=== PATIENT | male | born 1935 | race Caucasian/White ===

== ENCOUNTER 2017-09-07 17:46 | Emergency (ER) | payer MEDICARE, OTHER ==
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
[2017-09-07] MEDS ORDERED: ONDANSETRON HCL IV 4 MG/2 ML VIAL IVP ONE ×2 (18:19→19:17)
[2017-09-07 18:34] LABS: HEMATOCRIT 44.4 % (42.0-52.0); MEAN CELL VOLUME 84.4 fl (81-97); MEAN CORPUSCULAR HEMOGLOBIN 28.5 pg (27-33); MEAN CORPUSCULAR HGB CONC 33.8 g/dl (32-36); MEAN PLATELET VOLUME 10.2 fl (7.4-10.4); RED BLOOD COUNT 5.26 M/uL (4.40-5.70); WHITE BLOOD COUNT W/O DIFF 6.8 K/uL (4.2-12.2)
[2017-09-07 18:42] LABS: INFLUENZA A NEGATIVE (NEGATIVE)
[2017-09-07 18:42] LABS: BLOOD UREA NITROGEN 17 mg/dL (8-23); CREATININE 0.5 mg/dL (0.7-1.2); EST GLOMERULAR FILTRATION RATE > 60 mL/min; TOTAL PROTEIN 4.8 g/dL (6.6-8.7)
[2017-09-07 18:43] LABS: INFLUENZA B NEGATIVE (NEGATIVE)
[2017-09-07 18:44] LABS: GLUCOSE,RANDOM 82 mg/dL (74-109)
[2017-09-07 18:45] LABS: PLATELET COUNT 90 K/uL (130-400)
[2017-09-07] MEDS ORDERED: HYDROCORTISONE 100MG/VIAL IVP ONE (18:46)
[2017-09-07 18:47] LABS: ALB/GLOB RATIO 1.4 (1.1-1.8); ALBUMIN 2.8 g/dL (4.0-5.0); ALKALINE PHOSPHATASE 120 U/L (40-129); ALT/SGPT 248 U/L (<41); AST/SGOT 327 U/L (10.0-50.0); LIPASE 35 U/L (13-60)
[2017-09-07] MEDS ORDERED: SOD CHLOR 0.9% WITH KCL 40MEQ 40 MEQ/1,000 ML IV.SOLN IV ONE (19:09)
[2017-09-07] MEDS ORDERED: CALCIUM GLUCONATE 100 MG in 0.9 % SODIUM CHLORIDE 100ML 100 ML IV ONE (19:09)
[2017-09-07 20:17] LABS: URINE APPEARANCE CLEAR; URINE BILIRUBIN NEGATIVE (NEGATIVE); URINE BLOOD NEGATIVE (NEGATIVE); URINE COLOR YELLOW; URINE GLUCOSE (UA) NEGATIVE (NEGATIVE); URINE KETONE NEGATIVE (NEGATIVE); URINE LEUKOCYTE ESTERASE NEGATIVE (NEGATIVE); URINE NITRITE NEGATIVE (NEGATIVE); URINE PROTEIN TRACE (NEGATIVE); URINE UROBILINOGEN 0.2 E.U./dL (0.20 - 1.00)
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
[2017-09-07] MEDS ORDERED: PIPERACILLIN SODIUM/TAZOBACTAM 4.5 GM in 0.9 % SODIUM CHLORIDE 100ML 100 ML IVPB ONE (20:40)
--- NOTE | 2017-09-09 09:02 | CT ANGIOGRAM REPORT ---
EXAM: CTA OF THE CHEST WITH CONTRAST WITH POST PROCESSING HISTORY: SHORTNESS OF BREATH, POSSIBLE PE. TECHNIQUE: CTA of the chest was performed following the intravenous administration of 95 ml of Omnipaque 350 as the IV contrast. Post processing on an independent workstation was performed with multiple 3D MIP series obtained. A preliminary report was provided by [facility]. Comparison: No prior chest CT. Comparison is made with the two view chest x- ray dated 10/21/15. FINDINGS: No definite PE identified. There is some mild artifact in some of the peripheral lower lobe pulmonary arterial branches bilaterally probably related to some mild motion artifact. No thoracic aortic aneurysm or dissection is seen. Prominent coronary artery calcification is present. Some mediastinal lipomatosus is noted. No definite hilar or mediastinal adenopathy is seen. Please see the abdomen CT report today for upper abdominal findings evident on the chest CTA. No pneumothorax evident. There is some minor discoid atelectasis in the bases. Prominent spurring in the thoracic spine particularly inferiorly. IMPRESSION: 1. NO DEFINITE PE IDENTIFIED. 2. CORONARY ARTERY CALCIFICATION. 3. MEDIASTINAL LIPOMATOSUS. 4. HYPERTROPHIC SPURRING IN THE SPINE. JOB NUMBER: [id number] [facility]
--- NOTE | 2017-09-09 09:34 | CT SCAN REPORT ---
EXAM: EMERGENCY CT OF THE ABDOMEN AND PELVIS WITH CONTRAST HISTORY: NAUSEA AND VOMITING, PRIOR APPENDECTOMY, BOWEL RESECTION, BLADDER TUMOR. TECHNIQUE: Axial CT scan of the abdomen and pelvis was performed following the intravenously contrast enhanced chest CTA utilizing a dose of 95 ml of Omnipaque 350 for the IV contrast as reported in the chest CTA. A preliminary report was provided by [facility]. Comparison: CT of the abdomen and pelvis 10/21/15. FINDINGS: The gallbladder is not identified and is presumably surgically absent. Correlation with the surgical history is suggested as no such history provided. Mild prominence of the intrahepatic biliary tree as well as the upper common duct seen with the intrahepatic biliary prominence slightly more evident than before. This may all just reflect the post cholecystectomy state, but correlation with serum bilirubin suggested. The common duct measures about 12 mm in diameter in its greatest dimension superiorly. No definite hepatic mass evident. The previously noted 1 cm cyst in the spleen measures slightly larger at about 1.7 cm today. This has a CT density of 18 consistent with a cyst. There are multiple cysts in the left kidney, largest located in the lower pole measuring 5.2 cm in size slightly increased from 4.1 cm previously, with a CT density of 18 consistent with a cyst. There are either two adjacent cysts each measuring about 4.2 and 3.7 cm in size or collectively a single septated cyst measuring 6.4 cm in size also slightly increased from the maximum dimension of approximately 5.5 cm previously. There are also bilateral currently nonobstructing intrarenal calculi. No hydronephrosis or hydroureter is seen on either side. No ureteral calculus seen on either side and no bladder calculus evident. There is ectasia of the infrarenal abdominal aorta to a maximum diameter of about 2.6 cm in size. Prominent stool in the distal colon. Mild scattered diverticulosis, but no diverticulitis evident. The appendix is not identified consistent with the surgical history. No free intraperitoneal air or free intraperitoneal fluid identified. Prominent spurring in the lower thoracic spine. Postop changes in the lower lumbar spine also present previously with degenerative disk disease in the lower lumbar spine also present previously. Postop changes are seen in the region of the low sigmoid colon also present previously. IMPRESSION: 1. POSTOP CHOLECYSTECTOMY. SLIGHTLY GREATER PROMINENCE OF THE INTRAHEPATIC BILIARY TREE COMPARED WITH 10/21/15. RECOMMEND CORRELATION WITH SERUM BILIRUBIN. 2. APPARENT BILATERAL RENAL CYSTS LARGER ON THE LEFT THAN THE RIGHT BEFORE AND ALSO A SMALL SPLENIC CYST. SOME OF THESE CYSTS HAVE INCREASED IN SIZE SINCE THE PRIOR STUDY. 3. BILATERAL CURRENTLY NONOBSTRUCTING INTRARENAL CALCULI. 4. POSTOP APPENDECTOMY. 5. POSTOP CHANGES IN THE SIGMOID COLON BEFORE. 6. MILD SCATTERED DIVERTICULOSIS IN THE COLON, BUT NO DIVERTICULITIS EVIDENT. 7. POSTOP CHANGES LOWER LUMBAR SPINE BEFORE WITH MULTILEVEL DEGENERATIVE CHANGE IN THE SPINE. JOB NUMBER: [id number] [facility]
== END 2017-09-07 21:14 | disposition short-term general hospital (02) ==
LOC: ER 17:46
DX: A41.9 Sepsis, unspecified organism (principal); D69.6 Thrombocytopenia, unspecified; E87.6 Hypokalemia; E83.51 Hypocalcemia; R11.2 Nausea with vomiting, unspecified; R10.13 Epigastric pain; M31.5 Giant cell arteritis with polymyalgia rheumatica; R06.00 Dyspnea, unspecified; R50.81 Fever presenting with conditions classified elsewhere; I10 Essential (primary) hypertension; Z85.038 Personal history of other malignant neoplasm of large intestine; Z87.891 Personal history of nicotine dependence
CPT/HCPCS: 71275; 74177; 80053; 81003; 83605; 83690; 84484; 85027; 87400; 93005; 93010; 96374; 96375; 96376; 99285; J1720; J2405; J2543

== ENCOUNTER 2017-09-09 09:40 | Emergency (ER) | payer MEDICARE, OTHER ==
[2017-09-09] MEDS ORDERED: CEFTRIAXONE SODIUM 1 GM in 0.9 % SODIUM CHLORIDE 100ML 100 ML IVPB ONE (09:42)
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
[2017-09-09 10:26] LABS: HEMATOCRIT 39.2 % (42.0-52.0); HEMOGLOBIN 12.8 gm/dl (14.0-18.0); MEAN CELL VOLUME 86.2 fl (81-97); MEAN CORPUSCULAR HEMOGLOBIN 28.1 pg (27-33); MEAN CORPUSCULAR HGB CONC 32.7 g/dl (32-36); MEAN PLATELET VOLUME 9.4 fl (7.4-10.4); PLATELET COUNT 222 K/uL (130-400); RED BLOOD COUNT 4.55 M/uL (4.40-5.70); RED CELL DISTRIBUTION WIDTH 15.8 % (11.5-14.5); WHITE BLOOD COUNT W/O DIFF 14.8 K/uL (4.2-12.2)
[2017-09-09 10:41] LABS: PLATELET ESTIMATE NORMAL (NORMAL)
[2017-09-09 10:42] LABS: BLOOD UREA NITROGEN 23 mg/dL (8-23); CREATININE 0.7 mg/dL (0.7-1.2); EST GLOMERULAR FILTRATION RATE > 60 mL/min; GLUCOSE,RANDOM 119 mg/dL (74-109)
[2017-09-09 11:27] LABS: URINE APPEARANCE CLEAR; URINE BILIRUBIN NEGATIVE (NEGATIVE); URINE BLOOD NEGATIVE (NEGATIVE); URINE COLOR YELLOW; URINE GLUCOSE (UA) NEGATIVE (NEGATIVE); URINE KETONE NEGATIVE (NEGATIVE); URINE LEUKOCYTE ESTERASE NEGATIVE (NEGATIVE); URINE NITRITE NEGATIVE (NEGATIVE); URINE PROTEIN NEGATIVE (NEGATIVE); URINE UROBILINOGEN 0.2 E.U./dL (0.20 - 1.00)
== END 2017-09-09 11:41 | disposition home or self-care (01) ==
LOC: ER 09:40
DX: R78.81 Bacteremia (principal); M31.5 Giant cell arteritis with polymyalgia rheumatica
CPT/HCPCS: 80048; 81003; 83605; 83735; 85027; 96365; 99284

== ENCOUNTER 2019-03-30 19:38 | Emergency (ER) | payer MEDICARE, OTHER ==
[2019-03-30 20:33] LABS: ABSOLUTE NEUTROPHIL COUNT 7.25; BASO % 0.4 % (0-6); EOS % 1.4 % (0-6); HEMATOCRIT 47.1 % (42.0-52.0); HEMOGLOBIN 15.6 gm/dl (14.0-18.0); LYMPH % 16.4 % (16-45); MEAN CELL VOLUME 82.6 fl (81-97); MEAN CORPUSCULAR HEMOGLOBIN 27.4 pg (27-33); MEAN CORPUSCULAR HGB CONC 33.1 g/dl (32-36); MEAN PLATELET VOLUME 10.2 fl (7.4-10.4); MONO % 7.8 % (0-9); PLATELET COUNT 185 K/uL (130-400); RED CELL DISTRIBUTION WIDTH 16.1 % (11.5-14.5); WHITE BLOOD COUNT W/O DIFF 9.8 K/uL (4.2-12.2)
[2019-03-30 20:39] LABS: URINE APPEARANCE CLEAR; URINE BILIRUBIN NEGATIVE (NEGATIVE); URINE BLOOD TRACE-I (NEGATIVE); URINE COLOR YELLOW; URINE GLUCOSE (UA) NEGATIVE (NEGATIVE); URINE KETONE NEGATIVE (NEGATIVE); URINE LEUKOCYTE ESTERASE NEGATIVE (NEGATIVE); URINE NITRITE NEGATIVE (NEGATIVE); URINE PROTEIN NEGATIVE (NEGATIVE); URINE UROBILINOGEN 0.2 E.U./dL (0.20 - 1.00)
[2019-03-30 20:47] LABS: BLOOD UREA NITROGEN 17 mg/dL (8-23); CREATININE 0.8 mg/dL (0.7-1.2); EST GLOMERULAR FILTRATION RATE > 60 mL/min
[2019-03-30 20:48] LABS: TOTAL PROTEIN 7.3 g/dL (6.6-8.7)
[2019-03-30 20:50] LABS: GLUCOSE,RANDOM 123 mg/dL (74-109)
[2019-03-30 20:52] LABS: ALT/SGPT 28 U/L (<41); AST/SGOT 19 U/L (10.0-50.0)
[2019-03-30 20:53] LABS: ALB/GLOB RATIO 1.6 (1.1-1.8); ALBUMIN 4.5 g/dL (4.0-5.0); ALKALINE PHOSPHATASE 79 U/L (40-129)
[2019-03-30 20:57] LABS: INFLUENZA A NEGATIVE (NEGATIVE); INFLUENZA B NEGATIVE (NEGATIVE)
[2019-03-30] MEDS: ALBUTEROL SULFATE (0.083%) 2.5 MG/3 ML NEB INH ONE (20:59)
[2019-03-30] MEDS: METHYLPREDNISOLONE PF 125MG/VIAL IVP ONE (21:58)
[2019-03-30] MEDS: AZITHROMYCIN 500 MG TABLET PO ONE (22:59)
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
[2019-03-30] MEDS: ALBUTEROL HFA 8 GM INHALER INH ONE (23:15)
--- NOTE | 2019-03-31 15:04 | CT SCAN REPORT ---
EXAM: CT SCAN OF THE HEAD HISTORY: PATIENT HAS HEADACHE, WEAKNESS AND UNSTEADINESS. TECHNIQUE: Serial axial CT scan of the head was performed at 2.5 mm intervals from the base of the skull to the apex without the use of intravenous contrast. Comparison: No comparison CT's are available. FINDINGS: Moderate generalized parenchymal volume loss is noted. There is no mass or mass effect. There is mild to moderate periventricular and subcortical white matter chronic small vessel ischemic changes. There is no CT evidence of intra or extraaxial fluid collection to suggest bleeding. Bone windows demonstrate no CT evidence of a fracture or dislocation of the skull. The paranasal sinuses demonstrate moderate to significant mucosal thickening within the right maxillary sinus suggesting chronic sinusitis. Clinical correlation is recommended. IMPRESSION: 1. CHRONIC SMALL VESSEL ISCHEMIC CHANGES ARE NOTED WITHOUT CT EVIDENCE OF AN ACUTE INTRACRANIAL PROCESS. 2. FINDINGS SUGGESTIVE OF CHRONIC SINUSITIS DISCUSSED ABOVE. CLINICAL CORRELATION IS RECOMMENDED. JOB NUMBER: [id number] MTDD
== END 2019-03-30 23:30 | disposition home or self-care (01) ==
LOC: ER 19:38
DX: J20.9 Acute bronchitis, unspecified (principal); J01.90 Acute sinusitis, unspecified; R06.02 Shortness of breath; I10 Essential (primary) hypertension; F17.210 Nicotine dependence, cigarettes, uncomplicated
CPT/HCPCS: 70450; 71046; 80053; 81003; 83880; 85025; 85379; 87400; 93005; 93010; 94640; 94664; 96374; 99284; J2930; J7613